=== PATIENT | female | born 1940 | race Caucasian/White ===

== ENCOUNTER 2017-03-19 19:04 | Day surgery (SDC) | payer MEDICARE, OTHER ==
[~2017-03-19] VITALS: Ht 157.5 cm; Wt 54.5 kg
--- NOTE | ~2017-03-19 | OP ---
PATIENT NAME: FRANCIS CAPPS MEDICAL RECORD: [id number] :36 LOCATION:D.OPS ADMISSION DATE: SURGEON: KECIA PHILLIPS DO DATE OF OPERATION: 03/19/2017 PROCEDURE: Colonoscopy with biopsies. INDICATIONS FOR PROCEDURE: Hematochezia, constipation, change in bowel habits. SCOPE: Evaneos video pediatric colonoscope. MEDICATIONS: Propofol 380 mg IV per anesthesia. WITHDRAWAL TIME: 9 minutes. ESTIMATED BLOOD LOSS: Minimal. COMPLICATIONS: None. FINDINGS: Informed consent was given. The patient was made comfortable with the above medication. After reaching an adequate level of sedation by slow IV push, the patient was placed on her left side. A digital rectal examination was performed and was normal. The endoscope was then advanced under direct visualization through the rectum to the terminal ileum. The scope was slowly withdrawn and the mucosa was carefully examined. There was evidence of moderate diverticulosis involving the sigmoid and descending colon. There was a single superficial ulcer measuring approximately 1 cm in size located in the sigmoid colon to descending colon transition at approximately 35 cm. Four biopsies were taken of this site. There was evidence of medium size nonbleeding internal hemorrhoids on retroflexion in the rectum. The remainder of the examination was within normal limits. The scope was withdrawn from the patient. The patient tolerated the procedure well and there were no complications. IMPRESSIONS: 1. Moderate diverticulosis of the left side of the colon. 2. Single superficial ulcer as described above with biopsies taken. 3. Medium nonbleeding internal hemorrhoids. PLAN AND RECOMMENDATIONS: 1. Discharge home when recovery parameters are met. 2. Continue high fiber diet. 3. Continue current medications. 4. Minimize use of NSAIDs. 5. Follow up biopsy specimen results. 6. No further colonoscopies necessary unless symptoms warrant. We will follow biopsy results. I do not believe there is a concern regarding this ulcer and that it will heal on its own. If biopsies indicate a reason to, further workup will be made. TRANSINT:[id number] Voice Confirmation ID: [id number] DOCUMENT ID: [id number] OPERATIVE REPORT [id number] FRANCIS CAPPSKECIA DO CC: [id number] DICTATION DATE: 03/19/17 1750 POLICY CANCELLATION CLERK: 03/20/17 0251 [facility] 03/19/17 [place] [address]
[2017-03-19 15:54] LABS: BASOPHILS 0.4 % (0-2); EOSINOPHILS 1.6 % (0-7); HEMATOCRIT 35.8 % (36.0-48.0); HEMOGLOBIN 11.4 g/dL (12-16); IMMATURE GRANULOCYTES 0.1 % (0-5); MCHC 31.8 g/dL (31.0-37.0); MCV 81.5 fL (80.0-100.0); MEAN PLATELET VOLUME 8.6 fL (7.4-10.4); MONOCYTES 14.1 % (2-11); NEUTROPHILS 44.8 % (40-80); PLATELET COUNT 283 10x3/uL (130-400); RBC 4.39 10x6/uL (4.00-5.40); RDW 15.8 % (11.5-14.5); WBC 6.9 10x3/uL (4.8-10.8)
[2017-03-19 15:56] VITALS: BP 126/81; Ht 157.5 cm; Wt 54.5 kg
[2017-03-19 16:07] LABS: APTT 32.4 SECONDS (22.8-39.4); INR 1.1 (0.85-1.17); PROTIME 14.1 SECONDS (11.6-15.0)
[2017-03-19 16:19] LABS: ALBUMIN 3.3 g/dL (3.4-5.0); ANION GAP 14.2 mmol/L (8-16); BILIRUBIN - TOTAL 0.65 mg/dL (0.2-1.3); CALCIUM 8.1 mg/dL (8.5-10.1); CARBON DIOXIDE 26.1 mmol/L (21.0-32.0); CREATININE - SERUM 0.9 mg/dL (0.6-1.3); POTASSIUM - SERUM 3.3 mmol/L (3.5-5.1)
--- NOTE | 2017-03-19 18:58 | NUR ---
1855--IV DC'D, PT UP TO DRESS AT THIS TIME. PAULA ZHU
--- NOTE | 2017-03-19 19:00 | NUR ---
1899--DISCHARGE INSTRUCTIONS GIVEN, PT VERBALIZES UNDERSTANDING. PT OFF UNIT VIA DESTINI. PAULA ZHU
[~2017-03-19 19:04] MED LIST: CARDIZEM 90 MG90 MG PO; CELEXA20 MG PO; HYDROCODONE-APA1 TAB PO; LEVOTHYROXINE100 MCG PO; MULTAQ400 MG PO; SPIRIVA18 MCG INH
== END 2017-03-19 19:05 | disposition home or self-care (01) ==
LOC: D.OPS 19:04
PROVIDERS: Anesthesiology
DX: K57.30 Diverticulosis of large intestine without perforation or abscess without bleeding (principal); K63.3 Ulcer of intestine; K64.8 Other hemorrhoids; Z01.812 Encounter for preprocedural laboratory examination

== ENCOUNTER 2018-08-17 15:15 | Inpatient (IN) | payer MEDICARE, OTHER ==
[~2018-08-17] VITALS: Ht 157.5 cm; Wt 57.2 kg
--- NOTE | ~2018-08-17 | MORECARE ---
CASE MANAGEMENT DISCHARGE SUMMARY PATIENT: FRANCIS CAPPS UNIT: [id number] ADM DATE: 08/18/18 AGE: 78 : 38 SEX: F ROOM/BED: D.2226 AUTHOR: TANVIR,DOC PHYSICIAN: REFERRING PHYSICIAN: NIKHIL GOODRICH MD DATE OF SERVICE: 08/19/18 Discharge Plan Patient Name: FRANCIS CAPPS Facility: [facility]:[place] : 1940 Planned Disposition: Home with Home Health Anticipated Discharge Date: Discharge Date: Expected LOS: Initial Reviewer: [email or web address] Initial Review Date: 08/18/2018 Generated: 08/19/18 5:26 pm Comments DCP- Discharge Planning Updated by [email or web address]: Priscajohn Morrell on 08/19/18 3:[address] Patient has been unable to walk at home using her walker related to compression fracture, and her caregiver has been having to carry her at times. Her caregiver has stated that she is becoming increasingly difficult to care for since she has been unable to ambulate with her walker. She states that their home can accommodate a wheelchair and is requesting a wheelchair to help with her care. DCP- Discharge Planning Updated by [email or web address]: Prisca Morrell on 08/19/18 2:[address] Sheriff is going to treat patient's back on an outpatient basis, PCP states she will probably discharge home tomorrow. I called her caregiver Marry and she is in agreement but would like a wheelchair to aide in taking care of her. States she would like to use [facility] if possible. I called and spoke to Monica at [facility] and clinical faxed. CM will continue to follow and assist with discharge planning/needs. DCP- Discharge Planning Updated by [email or web address]: Prisca Morrell on 08/18/18 10:[address] Patient Name: FRANCIS CAPPS Admission Status: ER Accout number: [id number] Admission Date: 08-17-2018 : 1940 Admission Diagnosis: Attending: NIKHIL GOODRICH Current LOS: 1 Anticipated DC Date: Planned Disposition: Home with Home Health Primary Insurance: MEDICARE A & B Discharge Planning Comments: CM met with patient to discuss discharge planning, she is alone in the room. She states she plans on returning home with her friend, Marry. States she has home health come out twice a week for physical therapy. She states she is tired and would like me to speak to her friend for further questions. I called and spoke to Marry about the discharge plan. Marry states she uses her walker at home, but may need a wheelchair on discharge until her back is better. I discussed the availability of inpatient rehab, SNF and home health services. Marry states she may be willing to do inpatient therapy but does not want her placed in a nursing facility. States she would like her to return home if possible and continue therapy with [facility] (states a nurse and physical therapist comes out twice a week). I asked if she was still able to care for her at home and she states yes and repeats that she does not want her in a skilled facility at this time. I called Dr. Saeed's office per her request and they are going to send a copy of her home med list. CM will continue to follow and assist with discharge planning/needs. Information Technology Teacher: Prisca Morrell DCPIA - Discharge Planning Initial Assessment Updated by [email or web address]: Prisca Morrell on 08/18/18 11:40 am * Is the patient Alert and Oriented? Yes * How many steps to enter\exit or inside your home? 2/0 * PCP Dr. Saeed * [facility]acy [facility] * Preadmission Environment Home with Family * ADLs Partial Dependent * Partial ADLs (Assistance needed) Ambulation Toileting Transfers * Equipment Cane Nebulizer Oxygen Walker * List name and contact numbers for known caregivers / representatives who currently or will assist patient after discharge: Marry Gonzales - Friend and caregiver - [phone] * Verbal permission to speak to the caregivers and representatives has been obtained from the patient. Yes * Community resources currently utilized Home Health * Please name any agencies selected above. [facility] is DME * Additional services required to return to the preadmission environment? Yes * Can the patient safely return to the preadmission environment? Yes * Has this patient been hospitalized within the prior 30 days at any hospital? Yes Last DP export: 08/19/18 2:56 Patient Name: FRANCIS CAPPS Page 68072 at 1626 All edits/amendments must be made on the electronic document DICTATION DATE: 08/19/181625 INVOICING MACHINE OPERATOR: SOLITARIO 08/19/181625 RPT#: [id number] [place] DATE: STATUS: ADM IN [facility] [address] [place] [address] END OF REPORT
--- NOTE | ~2018-08-17 | MORECARE ---
CASE MANAGEMENT DISCHARGE SUMMARY PATIENT: FRANCIS CAPPS UNIT: [id number] ADM DATE: 08/18/18 AGE: 78 : 38 SEX: F ROOM/BED: D.2226 AUTHOR: TANVIR,DOC PHYSICIAN: REFERRING PHYSICIAN: NIKHIL GOODRICH MD DATE OF SERVICE: 08/20/18 Discharge Plan Patient Name: FRANCIS CAPPS Facility: [facility]:[place] : 1940 Planned Disposition: Home with Home Health Anticipated Discharge Date: Discharge Date: Expected LOS: Initial Reviewer: [email or web address] Initial Review Date: 08/18/2018 Generated: 08/20/18 1:54 pm Comments DCP- Discharge Planning Updated by [email or web address]: Prisca Morrell on 08/20/18 11:[address] Received order for discharge. I have faxed signed order for wheelchair to [facility] and spoke with Deshawn, awaiting wheelchair to be delivered. I called her caregiver and received a voice message and left my name and number to return call, informed her that her family member has discharge orders written and waiting on wheelchair to arrive. I also informed the patient of this. I spoke with Adwoa at [facility] to resume home health and clinical faxed. Discharging home today with home health. CM will continue to follow and assist with discharge planning/needs. DCP- Discharge Planning Updated by [email or web address]: Prisca Morrell on 08/19/18 3:[address] Patient has been unable to walk at home using her walker related to compression fracture, and her caregiver has been having to carry her at times. Her caregiver has stated that she is becoming increasingly difficult to care for since she has been unable to ambulate with her walker. She states that their home can accommodate a wheelchair and is requesting a wheelchair to help with her care. DCP- Discharge Planning Updated by [email or web address]: Prisca Morrell on 08/19/18 2:[address] Sheriff is going to treat patient's back on an outpatient basis, PCP states she will probably discharge home tomorrow. I called her caregiver Marry and she is in agreement but would like a wheelchair to aide in taking care of her. States she would like to use [facility] if possible. I called and spoke to Monica at [facility] and clinical faxed. CM will continue to follow and assist with discharge planning/needs. DCP- Discharge Planning Updated by [email or web address]: Prisca Petros on 08/18/18 10:[address] Patient Name: FRANCIS CAPPS Admission Status: ER Accout number: [id number] Admission Date: 08-17-2018 : 1940 Admission Diagnosis: Attending: NIKHIL GOODRICH Current LOS: 1 Anticipated DC Date: Planned Disposition: Home with Home Health Primary Insurance: MEDICARE A & B Discharge Planning Comments: CM met with patient to discuss discharge planning, she is alone in the room. She states she plans on returning home with her friend, Marry. States she has home health come out twice a week for physical therapy. She states she is tired and would like me to speak to her friend for further questions. I called and spoke to Marry about the discharge plan. Marry states she uses her walker at home, but may need a wheelchair on discharge until her back is better. I discussed the availability of inpatient rehab, SNF and home health services. Marry states she may be willing to do inpatient therapy but does not want her placed in a nursing facility. States she would like her to return home if possible and continue therapy with [facility] (states a nurse and physical therapist comes out twice a week). I asked if she was still able to care for her at home and she states yes and repeats that she does not want her in a skilled facility at this time. I called Dr. Saeed's office per her request and they are going to send a copy of her home med list. CM will continue to follow and assist with discharge planning/needs. Gastroenterology Physician: Prisca Morrell DCPIA - Discharge Planning Initial Assessment Updated by [email or web address]: Prisca Petros on 08/18/18 11:40 am * Is the patient Alert and Oriented? Yes * How many steps to enter\exit or inside your home? 2/0 * PCP Dr. Saeed * [facility]acy [facility] * Preadmission Environment Home with Family * ADLs Partial Dependent * Partial ADLs (Assistance needed) Ambulation Toileting Transfers * Equipment Cane Nebulizer Oxygen Walker * List name and contact numbers for known caregivers / representatives who currently or will assist patient after discharge: Marry Gonzales - Friend and caregiver - [phone] * Verbal permission to speak to the caregivers and representatives has been obtained from the patient. Yes * Community resources currently utilized Home Health * Please name any agencies selected above. [facility] home health [facility] is DME * Additional services required to return to the preadmission environment? Yes * Can the patient safely return to the preadmission environment? Yes * Has this patient been hospitalized within the prior 30 days at any hospital? Yes Last DP export: 08/20/18 11:16 Patient Name: FRANCIS CAPPS Page 26313 at 1254 All edits/amendments must be made on the electronic document DICTATION DATE: 08/20/18 125 VEHICLE UPHOLSTERER: SOLITARIO 08/20/18 1254 RPT#: [id number] DC DATE: STATUS: ADM IN [facility] [address] [place] [address] END OF REPORT
--- NOTE | ~2018-08-17 | MORECARE ---
CASE MANAGEMENT DISCHARGE SUMMARY PATIENT: FRANCIS CAPPS UNIT: [id number] ADM DATE: 08/17/18 AGE: 78 : 38 SEX: F ROOM/BED: D.2226 AUTHOR: MEGAN RAMEY PHYSICIAN: REFERRING PHYSICIAN: NIKHIL GOODRICH MD DATE OF SERVICE: 08/18/18 Discharge Plan Patient Name: FRANCIS CAPPS [facility] [facility] 1940 Planned Disposition: Home with Home Health Anticipated Discharge Date: Discharge Date: Expected LOS: Initial Reviewer: [email or web address] Initial Review Date: 08/18/2018 Generated: 08/18/18 12:43 pm DCPIA - Discharge Planning Initial Assessment Updated by [email or web address]: Prisca Morrell on 08/18/18 11:40 am * Is the patient Alert and Oriented? Yes * How many steps to enter\exit or inside your home? 2/0 * PCP Dr. Saeed * [facility]acy [facility] * Preadmission Environment Home with Family * ADLs Partial Dependent * Partial ADLs (Assistance needed) Ambulation Toileting Transfers * Equipment Cane Nebulizer Oxygen Walker * List name and contact numbers for known caregivers / representatives who currently or will assist patient after discharge: Marry Gonzales - Friend and caregiver - [phone] * Verbal permission to speak to the caregivers and representatives has been obtained from the patient. Yes * Community resources currently utilized Home Health * Please name any agencies selected above[facility] * Additional services required to return to the preadmission environment? Yes * Can the patient safely return to the preadmission environment? Yes * Has this patient been hospitalized within the prior 30 days at any hospital? Yes Patient Name: FRANCIS CAPPS Page 44958 at 1144 All edits/amendments must be made on the electronic document DICTATION DATE: 08/18/18 1143 ARMATURE WINDER REPAIR: SOLITARIO 08/18/18 1143 RPT#: [id number] DC DATE: STATUS: ADM IN [facility] [address] [place] [address] END OF REPORT
--- NOTE | ~2018-08-17 | MORECARE ---
CASE MANAGEMENT DISCHARGE SUMMARY PATIENT: FRANCIS CAPPS UNIT: [id number] ADM DATE: 08/17/18 AGE: 78 : 38 SEX: F ROOM/BED: D.2226 AUTHOR: TANVIR,DOC PHYSICIAN: REFERRING PHYSICIAN: NIKHIL GOODRICH MD DATE OF SERVICE: 08/18/18 Discharge Plan Patient Name: FRANCIS CAPPS Facility: [facility]:[place] : 1940 Planned Disposition: Home with Home Health Anticipated Discharge Date: Discharge Date: Expected LOS: Initial Reviewer: [email or web address] Initial Review Date: 08/18/2018 Generated: 08/18/18 12:57 pm Comments DCP- Discharge Planning Updated by [email or web address]: Prisca Morrell on 08/18/18 10:[address] Patient Name: FRANCIS CAPPS Admission Status: ER Accout number: [id number] Admission Date: 08-17-2018 : 1940 Admission Diagnosis: Attending: NIKHIL GOODRICH Current LOS: 1 Anticipated DC Date: Planned Disposition: Home with Home Health Primary Insurance: MEDICARE A & B Discharge Planning Comments: CM met with patient to discuss discharge planning, she is alone in the room. She states she plans on returning home with her friend, Marry. States she has [facility] come [facility] twice a week for physical therapy. She states she is tired and would like me to speak to her friend for further questions. I called and spoke to Marry about the discharge plan. Marry states she uses her walker at home, but may need a wheelchair on discharge until her back is better. I discussed the availability of inpatient rehab, SNF and home health services. Marry states she may be willing to do inpatient therapy but does not want her placed in a nursing facility. States she would like her to return home if possible and continue therapy with [facility] (states a nurse and physical therapist comes out twice a week). I asked if she was still able to care for her at home and she states yes and repeats that she does not want her in a skilled facility at this time. I called Dr. Saeed's office per her request and they are going to send a copy of her home med list. CM will continue to follow and assist with discharge planning/needs. Market Development Executive: Prisca Morrell DCPIA - Discharge Planning Initial Assessment Updated by [email or web address]: Prisca Morrell on 08/18/18 11:40 am * Is the patient Alert and Oriented? Yes * How many steps to enter\exit or inside your home? 2/0 * PCP Dr. Saeed * [facility]acy [facility] * Preadmission Environment Home with Family * ADLs Partial Dependent * Partial ADLs (Assistance needed) Ambulation Toileting Transfers * Equipment Cane Nebulizer Oxygen Walker * List name and contact numbers for known caregivers / representatives who currently or will assist patient after discharge: Marry Gonzales - Friend and caregiver - [phone] * Verbal permission to speak to the caregivers and representatives has been obtained from the patient. Yes * Community resources currently utilized Home Health * Please name any agencies selected above. [facility] home health [facility] is DME * Additional services required to return to the preadmission environment? Yes * Can the patient safely return to the preadmission environment? Yes * Has this patient been hospitalized within the prior 30 days at any hospital? Yes Last DP export: 08/18/18 10:43 Patient Name: FRANCIS CAPPS Page [id number] at 1157 All edits/amendments must be made on the electronic document DICTATION DATE: 08/18/181155 CYLINDER PRESS OPERATOR HELPER: SOLITARIO 08/18/181155 RPT#: [id number] [place] DATE: STATUS: ADM IN [facility] [address] [place] [address] END OF REPORT
--- NOTE | ~2018-08-17 | MORECARE ---
CASE MANAGEMENT DISCHARGE SUMMARY PATIENT: FRANCIS CAPPS UNIT: [id number] ADM DATE: 08/18/18 AGE: 78 : 38 SEX: F ROOM/BED: D.2226 AUTHOR: TANVIR,DOC PHYSICIAN: REFERRING PHYSICIAN: NIKHIL GOODRICH MD DATE OF SERVICE: 08/21/18 Discharge Plan Patient Name: FRANCIS CAPPS Facility: [facility]:[place] : 1940 Planned Disposition: Home with Home Health Anticipated Discharge Date: Discharge Date: 08/20/2018 Expected LOS: 0 Initial Reviewer: [email or web address] Initial Review Date: 08/18/2018 Generated: 08/21/18 9:27 am Comments DCP- Discharge Planning Updated by [email or web address]: Prisca Vieiradelano on 08/20/18 11:[address] Received order for discharge. I have faxed signed order for wheelchair to [facility] and spoke with Deshawn, awaiting wheelchair to be delivered. I called her caregiver and received a voice message and left my name and number to return call, informed her that her family member has discharge orders written and waiting on wheelchair to arrive. I also informed the patient of this. I spoke with Adwoa at [facility] to resume home health and clinical faxed. Discharging home today with home health. CM will continue to follow and assist with discharge planning/needs. DCP- Discharge Planning Updated by [email or web address]: Prisca Morrell on 08/19/18 3:[address] Patient has been unable to walk at home using her walker related to compression fracture, and her caregiver has been having to carry her at times. Her caregiver has stated that she is becoming increasingly difficult to care for since she has been unable to ambulate with her walker. She states that their home can accommodate a wheelchair and is requesting a wheelchair to help with her care. DCP- Discharge Planning Updated by [email or web address]: Prisca Vieiradelano on 08/19/18 2:[address] Sheriff is going to treat patient's back on an outpatient basis, PCP states she will probably discharge home tomorrow. I called her caregiver Marry and she is in agreement but would like a wheelchair to aide in taking care of her. States she would like to use [facility] if possible. I called and spoke to Monica at [facility] and clinical faxed. CM will continue to follow and assist with discharge planning/needs. DCP- Discharge Planning Updated by [email or web address]: Prisca Petros on 08/18/18 10:[address] Patient Name: FRANCIS CAPPS Admission Status: ER Accout number: [id number] Admission Date: 08-17-2018 : 1940 Admission Diagnosis: Attending: NIKHIL GOODRICH Current LOS: 1 Anticipated DC Date: Planned Disposition: Home with Home Health Primary Insurance: MEDICARE A & B Discharge Planning Comments: CM met with patient to discuss discharge planning, she is alone in the room. She states she plans on returning home with her friend, Marry. States she has home health come out twice a week for physical therapy. She states she is tired and would like me to speak to her friend for further questions. I called and spoke to Marry about the discharge plan. Marry states she uses her walker at home, but may need a wheelchair on discharge until her back is better. I discussed the availability of inpatient rehab, SNF and home health services. Marry states she may be willing to do inpatient therapy but does not want her placed in a nursing facility. States she would like her to return home if possible and continue therapy with [facility] (states a nurse and physical therapist comes out twice a week). I asked if she was still able to care for her at home and she states yes and repeats that she does not want her in a skilled facility at this time. I called Dr. Saeed's office per her request and they are going to send a copy of her home med list. CM will continue to follow and assist with discharge planning/needs. Eligibility Worker: Prisca Morrell DCPIA - Discharge Planning Initial Assessment Updated by [email or web address]: Prisca Petros on 08/18/18 11:40 am * Is the patient Alert and Oriented? Yes * How many steps to enter\exit or inside your home? 2/0 * PCP Dr. Saeed * [facility] * Preadmission Environment Home with Family * ADLs Partial Dependent * Partial ADLs (Assistance needed) Ambulation Toileting Transfers * Equipment Cane Nebulizer Oxygen Walker * List name and contact numbers for known caregivers / representatives who currently or will assist patient after discharge: Marry Gonzales - Friend and caregiver - [phone] * Verbal permission to speak to the caregivers and representatives has been obtained from the patient. Yes * Community resources currently utilized Home Health * Please name any agencies selected above. [facility] * Additional services required to return to the preadmission environment? Yes * Can the patient safely return to the preadmission environment? Yes * Has this patient been hospitalized within the prior 30 days at any hospital? Yes Last DP export: 08/20/18 11:54 Patient Name: FRANCIS CAPPS Page 12625 at 0827 All edits/amendments must be made on the electronic document DICTATION DATE: 08/21/18826 LEGAL LIBRARIAN: SOLITARIO 08/21/18826 RPT#: [id number] DC DATE:08/20/18 STATUS: DIS IN [facility] [address] [place] [address] END OF REPORT
--- NOTE | ~2018-08-17 | MORECARE ---
CASE MANAGEMENT DISCHARGE SUMMARY PATIENT: FRANCIS CAPPS UNIT: [id number] ADM DATE: 08/18/18 AGE: 78 : 38 SEX: F ROOM/BED: D.2226 AUTHOR: TANVIR,DOC PHYSICIAN: REFERRING PHYSICIAN: NIKHIL GOODRICH MD DATE OF SERVICE: 08/20/18 Discharge Plan Patient Name: FRANCIS CAPPS Facility: [facility]:[place] : 1940 Planned Disposition: Home with Home Health Anticipated Discharge Date: Discharge Date: Expected LOS: Initial Reviewer: [email or web address] Initial Review Date: 08/18/2018 Generated: 08/20/18 1:16 pm Comments DCP- Discharge Planning Updated by [email or web address]: Priscajohn Morrell on 08/19/18 3:[address] Patient has been unable to walk at home using her walker related to compression fracture, and her caregiver has been having to carry her at times. Her caregiver has stated that she is becoming increasingly difficult to care for since she has been unable to ambulate with her walker. She states that their home can accommodate a wheelchair and is requesting a wheelchair to help with her care. DCP- Discharge Planning Updated by [email or web address]: Prisca Morrell on 08/19/18 2:[address] Sheriff is going to treat patient's back on an outpatient basis, PCP states she will probably discharge home tomorrow. I called her caregiver Marry and she is in agreement but would like a wheelchair to aide in taking care of her. States she would like to use [facility] if possible. I called and spoke to Monica at [facility] and clinical faxed. CM will continue to follow and assist with discharge planning/needs. DCP- Discharge Planning Updated by [email or web address]: Prisca Vieiradelano on 08/18/18 10:[address] Patient Name: FRANCIS CAPPS Admission Status: ER Accout number: [id number] Admission Date: 08-17-2018 : 1940 Admission Diagnosis: Attending: NIKHIL GOODRICH Current LOS: 1 Anticipated DC Date: Planned Disposition: Home with Home Health Primary Insurance: MEDICARE A & B Discharge Planning Comments: CM met with patient to discuss discharge planning, she is alone in the room. She states she plans on returning home with her friend, Marry. States she has home health come out twice a week for physical therapy. She states she is tired and would like me to speak to her friend for further questions. I called and spoke to Marry about the discharge plan. Marry states she uses her walker at home, but may need a wheelchair on discharge until her back is better. I discussed the availability of inpatient rehab, SNF and home health services. Marry states she may be willing to do inpatient therapy but does not want her placed in a nursing facility. States she would like her to return home if possible and continue therapy with [facility] (states a nurse and physical therapist comes out twice a week). I asked if she was still able to care for her at home and she states yes and repeats that she does not want her in a skilled facility at this time. I called Dr. Saeed's office per her request and they are going to send a copy of her home med list. CM will continue to follow and assist with discharge planning/needs. Cigarette And Filter Chief Inspector: Prisca Morrell DCPIA - Discharge Planning Initial Assessment Updated by [id number]: Prisca Morrell on 08/18/18 11:40 am * Is the patient Alert and Oriented? Yes * How many steps to enter\exit or inside your home? 2/0 * PCP Dr. Saeed * Pharmacy [facility] * Preadmission Environment Home with Family * ADLs Partial Dependent * Partial ADLs (Assistance needed) Ambulation Toileting Transfers * Equipment Cane Nebulizer Oxygen Walker * List name and contact numbers for known caregivers / representatives who currently or will assist patient after discharge: Marry Gonzales - Friend and caregiver - [phone] * Verbal permission to speak to the caregivers and representatives has been obtained from the patient. Yes * Community resources currently utilized Home Health * Please name any agencies selected above. [facility] is DME * Additional services required to return to the preadmission environment? Yes * Can the patient safely return to the preadmission environment? Yes * Has this patient been hospitalized within the prior 30 days at any hospital? Yes External Providers External Provider: OTHER-OTHER Next Contact Date: Service Request Date: Service Type: Resolution: Reviewer: Comments: Last DP export: 08/19/18 3:26 Patient Name: FRANCIS CAPPS Page [id number] at 1216 All edits/amendments must be made on the electronic document DICTATION DATE: 08/20/181215 ROAD REPAIRER: SOLITARIO 08/20/181215 RPT#: [id number] DC DATE: STATUS: ADM IN [facility] [address] [place] [address] END OF REPORT
--- NOTE | ~2018-08-17 | MORECARE ---
CASE MANAGEMENT DISCHARGE SUMMARY PATIENT: FRANCIS CAPPS UNIT: [id number] ADM DATE: 08/18/18 AGE: 78 : 38 SEX: F ROOM/BED: D.2226 AUTHOR: MEGAN RAMEY PHYSICIAN: REFERRING PHYSICIAN: NIKHIL GOODRICH MD DATE OF SERVICE: 08/19/18 Discharge Plan Patient Name: FRANCIS CAPPS Facility: [facility]:[place] : 1940 Planned Disposition: Home with Home Health Anticipated Discharge Date: Discharge Date: Expected LOS: Initial Reviewer: [email or web address] Initial Review Date: 08/18/2018 Generated: 08/19/18 4:56 pm Comments DCP- Discharge Planning Updated by [email or web address]: Prisca Petros on 08/19/18 2:[address] Sheriff is going to treat patient's back on an outpatient basis, PCP states she will probably discharge home tomorrow. I called her caregiver Marry and she is in agreement but would like a wheelchair to aide in taking care of her. States she would like to use [facility] if possible. I called and spoke to Monica at [facility] and clinical faxed. CM will continue to follow and assist with discharge planning/needs. DCP- Discharge Planning Updated by [email or web address]: Prisca Morrell on 08/18/18 10:[address] Patient Name: FRANCIS CAPPS Admission Status: ER Accout number: [id number] Admission Date: 08-17-2018 : 1940 Admission Diagnosis: Attending: NIKHIL GOODRICH Current LOS: 1 Anticipated DC Date: Planned Disposition: Home with Home Health Primary Insurance: MEDICARE A & B Discharge Planning Comments: CM met with patient to discuss discharge planning, she is alone in the room. She states she plans on returning home with her friend, Marry. States she has home health come out twice a week for physical therapy. She states she is tired and would like me to speak to her friend for further questions. I called and spoke to Marry about the discharge plan. Marry states she uses her walker at home, but may need a wheelchair on discharge until her back is better. I discussed the availability of inpatient rehab, SNF and home health services. Marry states she may be willing to do inpatient therapy but does not want her placed in a nursing facility. States she would like her to return home if possible and continue therapy with [facility] health (states a nurse and physical therapist comes out twice a week). I asked if she was still able to care for her at home and she states yes and repeats that she does not want her in a skilled facility at this time. I called Dr. Saeed's office per her request and they are going to send a copy of her home med list. CM will continue to follow and assist with discharge planning/needs. Computer Technology Instructor: Prisca Morrell DCPIA - Discharge Planning Initial Assessment Updated by [email or web address]: Prisca Morrell on 08/18/18 11:40 am * Is the patient Alert and Oriented? Yes * How many steps to enter\exit or inside your home? 2/0 * PCP Dr. Saeed * Pharmacy [facility] * Preadmission Environment Home with Family * ADLs Partial Dependent * Partial ADLs (Assistance needed) Ambulation Toileting Transfers * Equipment Cane Nebulizer Oxygen Walker * List name and contact numbers for known caregivers / representatives who currently or will assist patient after discharge: Marry Gonzales - Friend and caregiver - [phone] * Verbal permission to speak to the caregivers and representatives has been obtained from the patient. Yes * Community resources currently utilized Home Health * Please name any agencies selected above. [facility] health [facility] is DME * Additional services required to return to the preadmission environment? Yes * Can the patient safely return to the preadmission environment? Yes * Has this patient been hospitalized within the prior 30 days at any hospital? Yes Last DP export: 08/19/18 2:48 Patient Name: FRANCIS CAPPS Page [id number] at 1556 All edits/amendments must be made on the electronic document DICTATION DATE: 08/19/181555 PRIMARY SCHOOL TEACHER LIBRARIAN: SOLITARIO 08/19/181555 RPT#: [id number] [place] DATE: STATUS: ADM IN [facility] [address] [place] [address] END OF REPORT
--- NOTE | ~2018-08-17 | MORECARE ---
CASE MANAGEMENT DISCHARGE SUMMARY PATIENT: FRANCIS CAPPS UNIT: [id number] ADM DATE: 08/18/18 AGE: 78 : 38 SEX: F ROOM/BED: D.2226 AUTHOR: TANVIR,DOC PHYSICIAN: REFERRING PHYSICIAN: NIKHIL GOODRICH MD DATE OF SERVICE: 08/19/18 Discharge Plan Patient Name: FRANCIS CAPPS Facility: [facility]:[place] : 1940 Planned Disposition: Home with Home Health Anticipated Discharge Date: Discharge Date: Expected LOS: Initial Reviewer: [email or web address] Initial Review Date: 08/18/2018 Generated: 08/19/18 4:48 pm Comments DCP- Discharge Planning Updated by [email or web address]: Prisca Morrell on 08/18/18 10:[address] Patient Name: FRANCIS CAPPS Admission Status: ER Accout number: [id number] Admission Date: 08-17-2018 : 1940 Admission Diagnosis: Attending: NIKHIL GOODRICH Current LOS: 1 Anticipated DC Date: Planned Disposition: Home with Home Health Primary Insurance: MEDICARE A & B Discharge Planning Comments: CM met with patient to discuss discharge planning, she is alone in the room. She states she plans on returning home with her friend, Marry. States she has [facility] come out twice a week for physical therapy. She states she is tired and would like me to speak to her friend for further questions. I called and spoke to Maryr about the discharge plan. Marry states she uses her walker at home, but may need a wheelchair on discharge until her back is better. I discussed the availability of inpatient rehab, SNF and home health services. Marry states she may be willing to do inpatient therapy but does not want her placed in a nursing facility. States she would like her to return home if possible and continue therapy with [facility] (states a nurse and physical therapist comes out twice a week). I asked if she was still able to care for her at home and she states yes and repeats that she does not want her in a skilled facility at this time. I called Dr. Saeed's office per her request and they are going to send a copy of her home med list. CM will continue to follow and assist with discharge planning/needs. Aerospace Engineer Officer Armament: Prisca Morrell DCPIA - Discharge Planning Initial Assessment Updated by [email or web address]: Prisca Petros on 08/18/18 11:40 am * Is the patient Alert and Oriented? Yes * How many steps to enter\exit or inside your home? 2/0 * PCP Dr. Saeed * Pharmacy [facility] * Preadmission Environment Home with Family * ADLs Partial Dependent * Partial ADLs (Assistance needed) Ambulation Toileting Transfers * Equipment Cane Nebulizer Oxygen Walker * List name and contact numbers for known caregivers / representatives who currently or will assist patient after discharge: Marry Gonzales - Friend and caregiver - [phone] * Verbal permission to speak to the caregivers and representatives has been obtained from the patient. Yes * Community resources currently utilized Home Health * Please name any agencies selected above. [facility] is DME * Additional services required to return to the preadmission environment? Yes * Can the patient safely return to the preadmission environment? Yes * Has this patient been hospitalized within the prior 30 days at any hospital? Yes External Providers External Provider: Myra Next Contact Date: Service Request Date: Service Type: Resolution: Reviewer: Comments: Last DP export: 08/18/18 10:57 Patient Name: FRANCIS CAPPS Page [phone] at 1548 All edits/amendments must be made on the electronic document DICTATION DATE: 08/19/181546 REEL REPAIRER: SOLITARIO 08/19/181546 RPT#: [id number] [place] DATE: STATUS: ADM IN [facility] [address] [place] [address] END OF REPORT
[2018-08-17 16:37] LABS: APPEARANCE HAZY (CLEAR); BILIRUBIN NEGATIVE (NEGATIVE); COLOR YELLOW (YELLOW); GLUCOSE NEGATIVE (NEGATIVE); KETONE NEGATIVE (NEGATIVE); NITRITE NEGATIVE (NEGATIVE); PROTEIN 1+ mg/dL (NEGATIVE); SPECIFIC GRAVITY 1.015 (1.005-1.020); UROBILINOGEN NORMAL (NORMAL)
[2018-08-17 16:38] LABS: BACTERIA FEW /hpf (NONE SEEN); EPITHELIAL CELLS 0-5 /hpf (0-5); RED CELLS - URINE 0-5 /hpf (0-5)
[2018-08-17 17:05] VITALS: BP 162/102
[2018-08-17 17:44] LABS: BASOPHILS 0.3 % (0-2); EOSINOPHILS 2.9 % (0-7); HEMATOCRIT 35.4 % (36.0-48.0); HEMOGLOBIN 11.7 g/dL (12-16); IMMATURE GRANULOCYTES 0.3 % (0-5); LYMPHOCYTES 37.2 % (15-50); MCH 30.2 pg (26.0-34.0); MCHC 33.1 g/dL (31.0-37.0); MCV 91.5 fL (80.0-100.0); MONOCYTES 16.2 % (2-11); NEUTROPHILS 43.1 % (40-80); RBC 3.87 10x6/uL (4.00-5.40); RDW 14.5 % (11.5-14.5); WBC 10.9 10x3/uL (4.8-10.8)
[2018-08-17 17:50] LABS: PLATELET COUNT 382 10x3/uL (130-400)
[2018-08-17 18:04] LABS: ALBUMIN 2.5 g/dL (3.4-5.0); ALKALINE PHOSPHATASE 111 U/L (46-116); ALT (SGPT) 14 U/L (10-68); BILIRUBIN - TOTAL 0.31 mg/dL (0.2-1.3); CALC OSMOLALITY 268 mosm/kg (275-300); CALCIUM 8.7 mg/dL (8.5-10.1); CARBON DIOXIDE 35.3 mmol/L (21.0-32.0); CHLORIDE - SERUM 97 mmol/L (98-107); CREATININE - SERUM 0.7 mg/dL (0.6-1.3); POTASSIUM - SERUM 3.3 mmol/L (3.5-5.1); PROTEIN - SERUM 7.1 g/dL (6.4-8.2); SODIUM 136 mmol/L (136-145); UREA NITROGEN 9 mg/dL (7-18); eGFR NON AFRICAN AMERICAN 85 mL/min (90-120)
[2018-08-17 18:16] LABS: GLUCOSE 57 mg/dL (74-106)
[2018-08-17 18:31] VITALS: BP 190/109
[2018-08-18 00:52] VITALS: BP 141/80; BMI 23.1
[2018-08-18 05:00] VITALS: BP 157/90
[2018-08-18 08:24] VITALS: BP 142/108
[2018-08-18 12:04] VITALS: BP 109/70
[2018-08-18 12:30] VITALS: Ht 157.5 cm; Wt 57.2 kg
[2018-08-18 12:37] LABS: ALBUMIN 2.2 g/dL (3.4-5.0); ANION GAP 7.7 mmol/L (8-16); BILIRUBIN - TOTAL 0.22 mg/dL (0.2-1.3); CALCIUM 8.4 mg/dL (8.5-10.1); CARBON DIOXIDE 34.7 mmol/L (21.0-32.0); POTASSIUM - SERUM 3.4 mmol/L (3.5-5.1); PROTEIN - SERUM 6.7 g/dL (6.4-8.2)
[2018-08-18 13:50] LABS: BASOPHILS 0.2 % (0-2); EOSINOPHILS 3.5 % (0-7); IMMATURE GRANULOCYTES 0.2 % (0-5); LYMPHOCYTES 34.9 % (15-50); MCH 29.5 pg (26.0-34.0); MCHC 31.4 g/dL (31.0-37.0); MEAN PLATELET VOLUME 8.6 fL (7.4-10.4); MONOCYTES 15.2 % (2-11); PLATELET COUNT 419 10x3/uL (130-400); RBC 3.73 10x6/uL (4.00-5.40); RDW 15.1 % (11.5-14.5); WBC 9.4 10x3/uL (4.8-10.8)
[2018-08-18 13:52] LABS: MCV 93.8 fL (80.0-100.0)
[2018-08-18 16:44] VITALS: BP 126/75
[2018-08-18 20:00] VITALS: BP 140/70
[2018-08-19 05:00] VITALS: BP 146/90
[2018-08-19 07:12] LABS: BASOPHILS 0.2 % (0-2); EOSINOPHILS 2.6 % (0-7); HEMATOCRIT 32.2 % (36.0-48.0); HEMOGLOBIN 10.1 g/dL (12-16); IMMATURE GRANULOCYTES 0.2 % (0-5); LYMPHOCYTES 33.5 % (15-50); MCH 29.1 pg (26.0-34.0); MCHC 31.4 g/dL (31.0-37.0); MCV 92.8 fL (80.0-100.0); MEAN PLATELET VOLUME 8.2 fL (7.4-10.4); MONOCYTES 13.8 % (2-11); NEUTROPHILS 49.7 % (40-80); PLATELET COUNT 311 10x3/uL (130-400); RBC 3.47 10x6/uL (4.00-5.40)
[2018-08-19 07:29] LABS: ALBUMIN 2.3 g/dL (3.4-5.0); ALKALINE PHOSPHATASE 95 U/L (46-116); BILIRUBIN - TOTAL 0.25 mg/dL (0.2-1.3); CALCIUM 8.3 mg/dL (8.5-10.1); CARBON DIOXIDE 33.2 mmol/L (21.0-32.0); CHLORIDE - SERUM 97 mmol/L (98-107); GLUCOSE 165 mg/dL (74-106); POTASSIUM - SERUM 3.3 mmol/L (3.5-5.1); PROTEIN - SERUM 6.9 g/dL (6.4-8.2); SODIUM 135 mmol/L (136-145)
[2018-08-19 07:36] LABS: ALT (SGPT) 8 U/L (10-68); CALC OSMOLALITY 272 mosm/kg (275-300); CREATININE - SERUM 0.7 mg/dL (0.6-1.3); UREA NITROGEN 11 mg/dL (7-18); eGFR NON AFRICAN AMERICAN 85 mL/min (90-120)
[2018-08-19 08:51] VITALS: BP 162/101
[2018-08-19 12:16] VITALS: BP 126/74
[2018-08-19 17:05] VITALS: BP 102/61
[2018-08-19 20:00] VITALS: BP 133/87
[2018-08-20 06:52] LABS: BASOPHILS 0.1 % (0-2); EOSINOPHILS 2.1 % (0-7); HEMATOCRIT 31.1 % (36.0-48.0); HEMOGLOBIN 9.8 g/dL (12-16); IMMATURE GRANULOCYTES 0.2 % (0-5); LYMPHOCYTES 28.8 % (15-50); MCH 29.3 pg (26.0-34.0); MCHC 31.5 g/dL (31.0-37.0); MCV 93.1 fL (80.0-100.0); MEAN PLATELET VOLUME 8.4 fL (7.4-10.4); MONOCYTES 15.2 % (2-11); NEUTROPHILS 53.6 % (40-80); PLATELET COUNT 300 10x3/uL (130-400); RBC 3.34 10x6/uL (4.00-5.40); RDW 15.2 % (11.5-14.5); WBC 8.5 10x3/uL (4.8-10.8)
[2018-08-20 07:16] LABS: ALBUMIN 2.3 g/dL (3.4-5.0); ALKALINE PHOSPHATASE 91 U/L (46-116); BILIRUBIN - TOTAL 0.25 mg/dL (0.2-1.3); CALCIUM 8.3 mg/dL (8.5-10.1); CARBON DIOXIDE 35.4 mmol/L (21.0-32.0); CHLORIDE - SERUM 98 mmol/L (98-107); CREATININE - SERUM 0.7 mg/dL (0.6-1.3); POTASSIUM - SERUM 3.2 mmol/L (3.5-5.1); SODIUM 136 mmol/L (136-145); UREA NITROGEN 10 mg/dL (7-18); eGFR NON AFRICAN AMERICAN 85 mL/min (90-120)
[2018-08-20 07:23] LABS: ALT (SGPT) 12 U/L (10-68); CALC OSMOLALITY 269 mosm/kg (275-300); GLUCOSE 83 mg/dL (74-106)
[2018-08-20 08:52] VITALS: BP 147/92
[2018-08-20] MEDS ORDERED: LACRI-LUBE S.O3.5 G1 LEFT EYE (11:09)
[2018-08-20] MEDS ORDERED: Nystatin Oral Susp [ PO (11:11)
[2018-08-20] MEDS ORDERED: Nicoderm [PBKC] TRANSDERM (11:11)
[2018-08-20] MEDS ORDERED: COLACE100 MG PO (11:11)
[2018-08-20] MEDS ORDERED: CYCLOBENZAPRINE10 MG PO (11:11)
[2018-08-20] MEDS ORDERED: ILOTYCIN OPTH LEFT EYE (11:11)
[2018-08-20 12:55] VITALS: BP 126/78
[2018-08-20] MEDS ORDERED: OMNICEF300 MG PO (14:15)
== END 2018-08-20 18:51 | disposition home health service (06) | DRG 551 ==
LOC: D.ER 15:15 → D.MS 18:55 → OBSVTIME 18:56 → D.MS 08-18 12:17
PROVIDERS: Emergency Medicine; Family Medicine
DX: S32.029A Unspecified fracture of second lumbar vertebra, initial encounter for closed fracture (principal); R53.2 Functional quadriplegia; E87.6 Hypokalemia; I10 Essential (primary) hypertension; I48.91 Unspecified atrial fibrillation; J44.9 Chronic obstructive pulmonary disease, unspecified; F32.9 Major depressive disorder, single episode, unspecified; M51.36 Other intervertebral disc degeneration, lumbar region